=== PATIENT | female | born 1985 | race Caucasian/White ===

== ENCOUNTER → 2025-10-26 08:43 | Outpatient (BNVA) | payer BC, SELFPAY | PROVIDERS: Visit Provider Nurse Practitioner Family | DX: E55.9 Vitamin D deficiency, unspecified (principal); E61.1 Iron deficiency; R53.83 Other fatigue; N95.1 Menopausal and female climacteric states; R76.89 Other specified abnormal immunological findings in serum | CPT/HCPCS: 80053; 82652; 82672; 83550; 84443; 85025 ==